=== PATIENT | male | born 2000 | race Caucasian/White ===

== ENCOUNTER 2022-08-20 20:34 | Emergency (ER) | payer BC ==
[2022-08-20 21:31] VITALS: RESP 18; TEMP 98
--- NOTE | 2022-08-20 23:09 | ED ---
Psych HPI - General Chief Complaint: Psychiatric Symptoms Stated Complaint: Mental Health Time Seen by Provider: 08/20/22 23:01 Source: patient, RN notes reviewed, old records reviewed Mode of arrival: ambulatory Limitations: no limitations - History of Present Illness Initial Comments: This is a 19-year-old male to the emergency department for evaluation of psychiatric illness. Patient presents today with depression suicidal thoughts. No recent history of drug or alcohol abuse. No prior inpatient hospitalizations or psychiatric evaluation and medication MD Complaint: feels depressed -: days(s) Associated Psychiatric Symptoms: depression, suicidal ideation History of same: Yes Quality: constant Improves With: none Worsens With: none Associated Symptoms: denies other symptoms Treatments Prior to Arrival: placed on mental health hold If Self Harm: admits thoughts of self harm - Related Data Allergies Allergy/AdvReac Type Severity Reaction Status Date / Time No Known Allergies Allergy Verified 08/20/22 21:28 Review of Systems ROS Statement: Those systems with pertinent positive or pertinent negative responses have been documented in the HPI. ROS Other: All systems not noted in ROS Statement are negative. Past Medical History Past Medical History: No Reported History History of Any Multi-Drug Resistant Organisms: None Reported Past Surgical History: No Surgical Hx Reported Past Psychological History: Anxiety, Depression Smoking Status: Never smoker Past Alcohol Use History: None Reported Past Drug Use History: None Reported General Exam Limitations: no limitations General appearance: alert, in no apparent distress Head exam: Present: atraumatic, normocephalic, normal inspection Eye exam: Present: normal appearance, PERRL, EOMI. Absent: scleral icterus, conjunctival injection, periorbital swelling ENT exam: Present: normal exam, mucous membranes moist Neck exam: Present: normal inspection. Absent: tenderness, meningismus, lymphadenopathy Respiratory exam: Present: normal lung sounds bilaterally. Absent: respiratory distress, wheezes, rales, rhonchi, stridor Cardiovascular Exam: Present: regular rate, normal rhythm, normal heart sounds. Absent: systolic murmur, diastolic murmur, rubs, gallop, clicks GI/Abdominal exam: Present: soft, normal bowel sounds. Absent: distended, tenderness, guarding, rebound, rigid Extremities exam: Present: normal inspection, full ROM, normal capillary refill. Absent: tenderness, pedal edema, joint swelling, calf tenderness Back exam: Present: normal inspection Neurological exam: Present: alert, oriented X3, CN II-XII intact Psychiatric exam: Present: normal affect, normal mood Skin exam: Present: warm, dry, intact, normal color. Absent: rash Course Vital Signs 08/20/22 21:29 Temperature 98 F Pulse Rate 59 L Respiratory 18 Rate Blood Pressure 126/84 O2 Sat by Pulse 98 Oximetry - Reevaluation(s) Reevaluation #1: 08/21/22 03:10 Medical records reviewed Reevaluation #2: 08/21/22 03:10 Medically clear for psychiatric evaluation Medical Decision Making - Medical Decision Making 22 male seen and evaluated by psychiatry, patient is stable for discharge home and is safety plan prior to discharge Disposition Clinical Impression: Depression, Suicidal ideation Disposition: HOME SELF-CARE Condition: Fair Instructions (If sedation given, give patient instructions): Depression (ED) Is patient prescribed a controlled substance at d/c from ED?: No Referrals: None,Stated [Primary Care Provider] - 1-2 days
[2022-08-21 07:02] VITALS: BP 135/75; PULSE 56
== END 2022-08-21 07:54 | disposition home or self-care (01) ==
LOC: EC 20:34
DX: F32.A Depression, unspecified (principal); R45.851 Suicidal ideations
CPT/HCPCS: 82075; 99285

== ENCOUNTER 2022-09-06 16:31 | Inpatient (IN) | payer BC ==
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
[2022-09-06 19:00] LABS: HCT 39.5 % (39.0-53.0); HGB 14.3 gm/dL (13.0-17.5); MCH 32.1 pg (25.0-35.0); MCHC 36.3 g/dL (31.0-37.0); MCV 88.5 fL (80.0-100.0); Mean Platelet Volume 8.7; Platelet Count 182 k/uL (150-450); RBC 4.46 m/uL (4.30-5.90); RDW 12.4 % (11.5-15.5)
[2022-09-06 19:11] LABS: ALT 21 U/L (4-49); AST 24 U/L (17-59); African American GFR (CKD) >90 (>60 ml/min/1.73 sqM); Albumin 4.3 g/dL (3.5-5.0); Alkaline Phosphatase 92 U/L (38-126); Anion Gap 10 mmol/L; Blood Urea Nitrogen 16 mg/dL (9-20); Calcium 9.3 mg/dL (8.4-10.2); Carbon Dioxide 23 mmol/L (22-30); Chloride 105 mmol/L (98-107); Glucose 85 mg/dL (74-99); Non-African American GFR(CKD) >90 (>60 ml/min/1.73 sqM); Potassium 4.1 mmol/L (3.5-5.1); Sodium 138 mmol/L (137-145); Total Bilirubin 1.7 mg/dL (0.2-1.3); Total Protein 6.9 g/dL (6.3-8.2)
[2022-09-06 19:12] LABS: Appearance,Urine Clear (Clear); Bilirubin,Urine Negative (Negative); Blood,Urine Negative (Negative); Color,Urine Yellow; Glucose,Urine (UA) Negative (Negative); Ketones,Urine Negative (Negative); Leukocyte Esterase,Urine Negative (Negative); Nitrite,Urine Negative (Negative); PH, Urine 6.5 (5.0-8.0); Protein,Urine Negative (Negative); Specific Gravity,Urine 1.023 (1.001-1.035)
[2022-09-06 19:18] LABS: Cocaine Screen,Urine Not Detected (NotDetected); Opiate Screen,Urine Not Detected (NotDetected); Phencyclidine Screen,Urine Not Detected (NotDetected); Urn Cannabinoid Scrn Detected (NotDetected)
[2022-09-06 19:19] LABS: Amphetamine Screen,Urine Not Detected (NotDetected); Barbiturate Screen,Urine Not Detected (NotDetected); Benzodiazepines Screen,Urine Not Detected (NotDetected); Methadone Screen, Urine Not Detected (NotDetected); Oxycodone Screen, Urine Not Detected (NotDetected); Tricyclic Antidepressant,Urine Not Detected (NotDetected)
[2022-09-06] MEDS ORDERED: MAGNESIUM HYDROXIDE 2,400 MG/30 ML CUP PO PRN (22:07)
[2022-09-06] MEDS ORDERED: OLANZapine 5 MG TAB PO PRN (22:07)
[2022-09-06] MEDS ORDERED: MAG HYDROX/AL HYDROX/SIMETH 30 ML CUP PO PRN (22:07)
[2022-09-07 10:38] LABS: Chol/HDL Ratio 3.11 Ratio; LDL Cholesterol,Calculated 52.2 mg/dL (0.0-131.0)
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
[2022-09-07] MEDS: NALTREXONE HCL 50 MG TAB PO SCH (11:57)
[2022-09-07] MEDS: ARIPiprazole 10 MG TAB PO SCH (11:57)
[2022-09-07] MEDS: NICOTINE 14MG/24HR PATCH TRANSDERM SCH (11:57)
[2022-09-07] MEDS: hydrOXYzine pamoate 25 MG CAP PO PRN (20:58)
[2022-09-08] MEDS: NICOTINE 14MG/24HR PATCH TRANSDERM SCH (08:56)
[2022-09-08] MEDS: NALTREXONE HCL 50 MG TAB PO SCH (08:56)
[2022-09-08] MEDS: ARIPiprazole 10 MG TAB PO SCH (08:56)
--- NOTE | 2022-09-08 11:24 | P.PN ---
Progress Note - Text Progress Note Date: 09/08/22 Interval History: Patient was seen resting in bed and was directable and agreeable to speak with assembly instructions writer in his room., The patient is not reporting any suicidal or homicidal ideation, intention, and/or plan. He is not reporting any auditory or visual hallucinations. The patient does admit to elevated paranoia and states that he often feels like people at work are constantly speaking about him. He reports that they say mean stuff to him stating that he is "sarabia." He reports no intention to harm them or hurt anyone. He has been adherent with his medication and reports only mild sedation as a side effect. He is agreeable to transitioning to a long-acting injectable prior to discharge. He denies any medical issues or concerns. The patient does admit to heavy marijuana use. He does acknowledge the need to decrease his marijuana use. Mental Status Exam: General Appearance: Patient appears to be stated age is alert, directable, and cooperative. Behavior: Patient is calmly seated without any agitated behavior. Speech: Patient's speech is fluent and nonpressured. Mood/Affect: Mood is improving mildly, affect is congruent and blunted. Suicidality/Homicidality: Patient reports no suicidal or homicidal ideation, intention, and/or plan. Perceptions: Patient denies any visual hallucinations however admits to auditory hallucinations. Though content/process: The patient continues to endorse elevated paranoia. Memory and concentration: AOX3, grossly intact for the purposes of this session Judgment and insight: Improving mildly Vital Signs Temp 98.2 F 09/08/22 06:42 Pulse 57 L 09/08/22 06:42 Resp 14 09/08/22 06:42 BP 123/59 09/08/22 06:42 Pulse Ox 100 09/06/22 23:45 FiO2 Assessment Schizophrenia - likely experiencing prodromal symptoms Alcohol use disorder, abuse Cannabis use disorder Nicotine dependence Plan: -Patient continues to meet criteria for inpatient psychiatric admission for symptom stabilization and safety. Patient has signed adult voluntary form and medication consent and was placed in patient's chart. -Medications: Increase Abilify to 20 mg by mouth daily for psychosis with plans to transition him to Abilify maintena prior to discharge. Continue naltrexone 50 mg by mouth daily for alcohol cessation -When necessary Zyprexa and Vistaril for agitation/aggression. -NRT - nicotine patch -SW on board for discharge planning. Encouraged the patient to participate in milieu.
[2022-09-08 13:21] VITALS: BMI 22.1
--- NOTE | 2022-09-08 17:41 | P.HPMEDMHU ---
History of Present Illness H&P Date: 09/08/22 Chief Complaint: SI Patient is a 22-year-old male with a past medical history of vaping who [facility]. Patient states that earlier this year he had a tick bite and completed antibiotic course. He states that currently he is not on any medications prior to coming in. Patient denies any shortness of breath, abdominal pain nausea vomiting. Review of Systems 10 ROS reviewed and are negative except as noted in HPI Past Medical History Past Medical History: No Reported History History of Any Multi-Drug Resistant Organisms: None Reported Past Surgical History: No Surgical Hx Reported Past Anesthesia/Blood Transfusion Reactions: No Reported Reaction Past Psychological History: Anxiety, Depression, Schizophrenia Additional Psychological History / Comment(s): pt reports having been admitted to the psych unit at [facility] but unsure of the date Smoking Status: Former smoker, Vaper Past Alcohol Use History: Heavy Additional Past Alcohol Use History / Comment(s): pt reports drinking beer "at least every three days or so" Past Drug Use History: Marijuana Additional Drug Use History / Comment(s): pt smokes weed "occasionally" but states "I'm done with that stuff now, it just makes it worse" Medications and Allergies Home Medications Medication Instructions Recorded Confirmed Type No Known Home Medications 09/06/22 09/06/22 History Allergies Allergy/AdvReac Type Severity Reaction Status Date / Time No Known Allergies Allergy Verified 09/06/22 20:21 Physical Exam Osteopathic Statement: *. No significant issues noted on an osteopathic structural exam other than those noted in the History and Physical/Consult. Vitals: Vital Signs Temp Pulse Resp BP 09/08/22 06:42 98.2 F 57 L 14 123/59 Intake and Output 09/08/22 09/08/22 09/08/22 06:59 14:59 22:59 Other: Weight 80.3 kg General: [Alert and oriented, well nourished, no acute distress]. Eye: [PERRL, EOMI, normal conjunctiva]. HENT: [Normocephalic, clear tympanic membranes, normal hearing, moist oral mucosa, no scleral icterus, no sinus tenderness]. Neck: [Supple, non-tender, no carotid bruits, no JVD, no lymphadenopathy]. Lungs: [Clear to auscultation and percussion, non-labored respiration]. Heart: [Normal rate, regular rhythm, no murmur, gallop or edema]. Abdomen: [Soft, non-tender, non-distended, normal bowel sounds, no masses]. Musculoskeletal: [Normal range of motion and strength, no tenderness or swelling]. Skin: [Skin is warm, dry and pink, no rashes or lesions]. Neurologic: [Awake, alert, and oriented X3, CN II-XII intact]. Psychiatric: [Cooperative, appropriate mood and affect]. Cranial Nerve Examination - Cranial Nerves Cranial Nerve I- Olfactory: Intact Cranial Nerve II- Optic: Intact Cranial Nerve III- Oculomotor: Intact Cranial Nerve IV- Trochlear: Intact Cranial Nerve V- Trigeminal: Intact Cranial Nerve - Abducens: Intact Cranial Nerve VII- Facial: Intact Cranial Nerve VIII- Auditory: Intact Cranial Nerve IX- Glossopharyngeal: Intact Cranial Nerve X- Vagus: Intact Cranial Nerve XI- Accessory: Intact Cranial Nerve XII- Hypoglossal: Intact Results CBC & Chem 7: 09/06/22 18:22 09/06/22 18:22 Thrombosis Risk Factor Assmnt - Choose All That Apply Any of the Below Risk Factors Present?: No Other Risk Factors: No Other congenital or acquired thrombophilia - If yes, enter type in comment: No Thrombosis Risk Factor Assessment Level: Very Low Risk Assessment and Plan Assessment: Vaping Patient counseled that he should stop vaping Marijuana use Patient counseled on cessation Mildly elevated bilirubin Patient is asymptomatic No further workup Suicide idealization and depression As per previous psychiatric management
[2022-09-08] MEDS: ACETAMINOPHEN TAB 325 MG TAB PO PRN (21:15)
[2022-09-09] MEDS: hydrOXYzine pamoate 25 MG CAP PO PRN (08:49)
[2022-09-09] MEDS: NALTREXONE HCL 50 MG TAB PO SCH (08:49)
[2022-09-09] MEDS: NICOTINE 14MG/24HR PATCH TRANSDERM SCH (08:49)
[2022-09-09] MEDS ORDERED: ARIPiprazole IM 400 MG VIAL (NO COST) PHARMACY STOCK IM ONE (10:00)
--- NOTE | 2022-09-09 11:27 | P.PN ---
Progress Note - Text Progress Note Date: 09/09/22 Interval History: Patient was seen resting in bed and was directable and agreeable to speak with newspaper writer in his room. The patient reports that he is feeling significantly better today. Reports that he is no longer expressing any kind of racing thoughts. He denies any auditory or visual hallucinations. He reports no paranoia or other delusions. He has been a hearing with his medication only reports mild sedation as a side effect. He denies any suicidal or homicidal ideation, intention, and/or plan. The patient does express future and goal orientation. He states that he is considering going to inpatient substance-abuse rehabilitation as he is currently homeless and this is what his mother suggesting. However, the patient does express a desire to return home and not to continue inpatient treatment. Mental Status Exam: General Appearance: Patient appears to be stated age is alert, directable, and cooperative. Behavior: Patient is calmly seated without any agitated behavior. Speech: Patient's speech is fluent and nonpressured. Mood/Affect: Mood is improving mildly, affect has increased range today. Euthymic. Suicidality/Homicidality: Patient reports no suicidal or homicidal ideation, intention, and/or plan. Perceptions: Patient denies any auditory or visual hallucinations Though content/process: Linear and logical in short conversation. Memory and concentration: AOX3, grossly intact for the purposes of this session Judgment and insight: Improving mildly Vital Signs Temp 98.3 F 09/09/22 06:00 Pulse 65 09/09/22 06:00 Resp 18 09/09/22 06:00 BP 138/79 09/09/22 06:00 Pulse Ox 98 09/09/22 06:00 FiO2 Intake & Output 09/08/22 09/09/22 09/09/22 18:59 06:59 18:59 Weight 80.3 kg Laboratory Results WBC 9.0 k/uL (3.8-10.6) 09/06/22 18:22 RBC 4.46 m/uL (4.30-5.90) 09/06/22 18:22 Hgb 14.3 gm/dL (13.0-17.5) 09/06/22 18:22 Hct 39.5 % (39.0-53.0) 09/06/22 18:22 MCV 88.5 fL (80.0-100.0) 09/06/22 18:22 MCH 32.1 pg (25.0-35.0) 09/06/22 18: MCHC 36.3 g/dL (31.0-37.0) 09/06/22 18:22 RDW 12.4 % (11.5-15.5) 09/06/22 18:22 Plt Count 182 k/uL (150-450) 09/06/22 18:22 MPV 8.7 09/06/22 18:22 Sodium 138 mmol/L (137-145) 09/06/22 18:22 Potassium 4.1 mmol/L (3.5-5.1) 09/06/22 18: Chloride 105 mmol/L (98-107) 09/06/22 18: Carbon Dioxide 23 mmol/L (22-30) 09/06/22 18: Anion Gap 10 mmol/L 09/06/22 18:22 BUN 16 mg/dL (9-20) 09/06/22 18: Creatinine 0.77 mg/dL (0.66-1.25) 09/06/22 18:22 Est GFR (CKD-EPI)AfAm >90 (>60 ml/min/1.73 sqM) 09/06/22 18:22 Est GFR (CKD-EPI)NonAf >90 (>60 ml/min/1.73 sqM) 09/06/22 18:22 Glucose 85 mg/dL (74-99) 09/06/22 18:[address] Glu mg/dL 105 mg/dL 09/06/22 18: Hemoglobin A1c 5.3 % (<=6.0) 09/06/22 18: Calcium 9.3 mg/dL (8.4-10.2) 09/06/22 18: Total Bilirubin 1.7 mg/dL (0.2-1.3) H 09/06/22 18:22 AST 24 U/L (17-59) 09/06/22 18:22 ALT 21 U/L (4-49) 09/06/22 18:22 Alkaline Phosphatase 92 U/L (38-126) 09/06/22 18:22 Total Protein 6.9 g/dL (6.3-8.2) 09/06/22 18:22 Albumin 4.3 g/dL (3.5-5.0) 09/06/22 18:22 Triglycerides 170.00 mg/dL (0.00-149.00) H 09/06/22 18:22 Cholesterol 127.00 mg/dL (0.00-200.00) 09/06/22 18:22 LDL Cholesterol, Calc 52.2 mg/dL (0.0-131.0) 09/06/22 18: VLDL Cholesterol, Calc 34.00 mg/dL (5.00-40.00) 09/06/22 18:22 HDL Cholesterol 40.80 mg/dL (40.00-60.00) 09/06/22 18: Cholesterol/HDL Ratio 3.11 Ratio 09/06/22 18: TSH 0.764 mIU/L (0.465-4.680) 09/06/22 18:22 Urine Color Yellow 09/06/22 18:22 Urine Appearance Clear (Clear) 09/06/22 18:22 Urine pH 6.5 (5.0-8.0) 09/06/22 18:22 Ur Specific [place] 1.023 (1.001-1.035) 09/06/22 18:22 Urine Protein Negative (Negative) 09/06/22 18:22 Urine Glucose (UA) Negative (Negative) 09/06/22 18:22 Urine Ketones Negative (Negative) 09/06/22 18:22 Urine Blood Negative (Negative) 09/06/22 18:22 Urine Nitrite Negative (Negative) 09/06/22 18:22 Urine Bilirubin Negative (Negative) 09/06/22 18:22 Urine Urobilinogen 2.0 mg/dL (<2.0) 09/06/22 18:22 Ur Leukocyte Esterase Negative (Negative) 09/06/22 18:22 Urine Opiates Screen Not Detected (NotDetected) 09/06/22 18:22 Ur Oxycodone Screen Not Detected (NotDetected) 09/06/22 18:22 Urine Methadone Screen Not Detected (NotDetected) 09/06/22 18:22 Ur Propoxyphene Screen Not Detected (NotDetected) 09/06/22 18:22 Ur Barbiturates Screen Not Detected (NotDetected) 09/06/22 18:22 U Tricyclic Antidepress Not Detected (NotDetected) 09/06/22 18:22 Ur Phencyclidine Scrn Not Detected (NotDetected) 09/06/22 18:22 Ur Amphetamines Screen Not Detected (NotDetected) 09/06/22 18:22 U Methamphetamines Scrn Not Detected (NotDetected) 09/06/22 18:22 U Benzodiazepines Scrn Not Detected (NotDetected) 09/06/22 18:22 Urine Cocaine Screen Not Detected (NotDetected) 09/06/22 18:22 U Marijuana (THC) Screen Detected (NotDetected) H 09/06/22 18:22 Coronavirus (PCR) Not Detected (Not Detectd) 09/06/22 18:22 Assessment Schizophrenia - likely experiencing prodromal symptoms Alcohol use disorder, abuse Cannabis use disorder Nicotine dependence Plan: -Patient continues to meet criteria for inpatient psychiatric admission for symptom stabilization and safety. Patient has signed adult voluntary form and medication consent and was placed in patient's chart. -Medications: Continue Abilify 20 mg by mouth daily and administer Abilify maintena 400 mg IM today. Continue naltrexone 50 mg by mouth daily for alcohol cessation -When necessary Zyprexa and Vistaril for agitation/aggression. -NRT - nicotine patch -SW on board for discharge planning. Encouraged the patient to participate in milieu.
[2022-09-10 03:23] VITALS: BP 130/66; PULSE 99; RESP 16; TEMP 97.9
[2022-09-10] MEDS: NALTREXONE HCL 50 MG TAB PO SCH (08:31)
[2022-09-10] MEDS: ACETAMINOPHEN TAB 325 MG TAB PO PRN (08:32)
[2022-09-10] MEDS: NICOTINE 14MG/24HR PATCH TRANSDERM SCH (08:33)
--- NOTE | 2022-09-10 11:25 | P.DS ---
Providers Date of admission: 09/06/22 22:03 Expected date of discharge: 09/10/22 Attending physician: Lorne Howell MD Consults: 09/08/22 01:15 Consult Physician Routine Consulting Provider: Jaz Lennon Consult Reason/Comments: History and Physical for new admission Do you want consulting provider notified?: Yes Primary care physician: Stated None - Discharge Diagnosis(es) (1) Cannabis-induced psychotic disorder Current Visit: Yes Status: Acute Priority: High (2) Cannabis use disorder Current Visit: Yes Status: Chronic Priority: High (3) Alcohol use disorder Current Visit: Yes Status: Chronic Priority: High (4) Nicotine dependence Current Visit: Yes Status: Chronic Priority: Medium Hospital Course: Admission HPI: Initial psychiatric evaluation was completed by Dr. Rao on 09/07/2022 who wrote: Patient is a single, employed, 22-year-old male who is presenting with substance use and suicidal ideation Patient was brought into the ED with his mother seeking treatment for a prior self-reported diagnosis of schizophrenia and presents with current suicidal ideation with plan to go onto a road to kill himself. While in the ED, his mother stated that patient suffers from hallucinations but denies it to others. Patient was admitted voluntarily onto the psychiatric unit. Patient is rather guarded throughout the interview although he opens up at times. He states that for the past year, he has been concerned about "people wanting to hurt me". He says that the paranoia was increasing also due to c annabis use. He states that last year, this paranoia was so overwhelming that he drove his truck into the [place]. He states that he attempted to hang himself in the [place] but then decided to get help instead. He was subsequently hospitalized at [facility] but states that he has not been compliant with medications that were prescribed there, which he recalls being Abilify, Vistaril, and trazodone. He reports noncompliance with these medications for the past 6 months. Patient describes a type of anxiety, unease that has begun in the past year. He cannot seem to express what he is worried about but states that he is always worried that people are going to hurt him. He states he is afraid he might become aggressive because of this perception. Serge also states that he has been drinking every other week excessively and states that he becomes agitated while drunk. As a result, he would like to maintain sobriety. He also reports that he had been sober from cannabis use for the past few months but had a relapse 2 days ago. He endorses paranoia even while sober of substances. He also expresses that his mood has been somewhat low and reports having low energy. He says that he does not feel like going on like this. He endorses passive suicidal ideation. He reports sleeping well and having fair appetite. On risk assessment, patient denies active suicidal ideation, intent, plan and denies homicidal ideation. He overly denies auditory and visual hallucinations. He denies access to firearms. Hospital course: Upon admission to the unit patient was initially presenting with psychomotor slowing, and suicidal ideation. Patient was however directable and agreeable to commence treatment. He signed himself voluntarily onto the psychiatric unit. Patient got along well with other patients on the unit and followed unit protocol. Patient was compliant with the medications and denied any side effects throughout hospital course. Patient was started on a regimen of Abilify for psychosis and naltrexone for alcohol cravings. Patient spoke of his stressors and engaged in therapy both group and individual. Patient was also seen by medical team for history and physical exam. Over the course of the Hospital physician, the patient's Abilify was gradually titrated. The patient displayed a significant improvement with this medication regimen and became more linear and logical and conversation. His range of affect has also increased. He did not endorse any auditory or visual hallucinations and had a significant improvement in his target symptoms of psychosis and mood. The patient also developed that her insight and judgment and was able to acknowledge that marijuana has been a contributor to his poor mental health. Initially, there was a plan for the patient to go to inpatient substance-abuse rehabilitation as this was recommended by the patient's mother. The patient has no home at this time to return to. However, the patient's insurance does not cover inpatient substance rehabilitation at [facility]. The patient expressed a strong desire for his discharge as he was a voluntary admission and presented with no significant criteria for continued inpatient psychiatric admission. On the day of discharge, the patient is not reporting any suicidal or homicidal ideation, intention, and/or plan. He reports no access to firearms or other weapons. He reports no auditory or visual hallucinations. He denies any paranoia or other delusions. He has been adherent with his medication and is not reporting any significant side effects. The patient's mother expresses concern for the patient's discharge stating that he is unable to return to her home and has no place to go to. Patient maintains that he is able to afford a motel stay at this time and he has friends he may contact. The acute cause of the patient's admission has been treated. He has been stabilized with medications and will be set up with aftercare appointments. The patient was counseled at length and he points medication adherence reported outpatient follow-up. He was counseled great length on abstaining from all substances, especially marijuana. As the patient no longer met criteria for continued inpatient psychiatric hospitalization he was subsequently discharged so as to not violate his rights to autonomy and freedom. Mental status exam: General Appearance: Patient appears to be stated age is alert, pleasant, and cooperative. Patient is in no acute distress and has fair hygiene and grooming Behavior: Patient is calmly seated without any agitated behavior. Speech: Patient's speech is fluent and nonpressured. Mood/Affect: Patient reports their mood is "much better", affect is congruent and euthymic to bright. Suicidality/Homicidality: Patient denies having any suicidal or homicidal ideation intent or plan. Perceptions: Patient denies any auditory or visual hallucinations. Though content/process: There is no evidence of any delusional thought content and thought process is linear and goal-directed. Patient is future oriented Memory and concentration: AOX3, grossly intact for the purposes of this session. Can spell "WORLD" backwards correctly. Judgment and insight: Improved with guarded prognosis Impression: Cannabis induced psychotic disorder Alcohol use disorder Cannabis use disorder Nicotine dependence Plan: -Continue with discharge today as patient has improved and stabilized psychiatrically and is not currently an imminent threat to himself and/or others. Patient will remain at chronically elevated risk due to his lack of stable housing and his history of substance abuse. -Continue medications: Abilify 20 mg by mouth at bedtime for psychosis/mood ReVia 50 mg by mouth daily for alcohol cessation -Patient was counseled on the need for medication compliance and appropriate follow-up at mental health and also primary care for medical issues. Patient verbalized understanding and agreed. -Social work to arrange for and conduct family meeting to ensure safety upon discharge and answer any questions/concerns. Social work also to arrange for patients follow up appointments with [facility] for psychiatric care along with follow up with primary care provider. -Patient counseled on abstaining from recreational drugs and marijuana and alcohol. Was informed/educated on the adverse effects on their physical and m ental health. Patient verbally agreed and understood. The patient was offered inpatient substance abuse treatment however his insurance does not cover it. Furthermore, the patient would only go to inpatient substance-abuse in order to appease his mother. -Patient was instructed to return to the hospital or seek immediate medical care if their psychiatric or medical symptoms do worsen or reoccur. -Psychoeducation and supportive therapy provided to patient. Risks and benefits of pharmacological treatment versus the risks and benefits of nontreatment weighed and discussed. Informed consent discussion held. Common side effects of psychotropics discussed such as, but not limited to headache, GI disturbance, sexual dysfunction, movement disorders, sedation, and orthostatic hypotension. Life threatening and blackbox warnings of prescribed medications also discussed. Potential risks of operating a vehicle or heavy machinery discussed with patient at length. Advised on importance of compliance and a reliable and responsible manner. Patient advised to review FDA consumer labeling of all medications prior to taking. Patient verbalized understanding of potential risks, and agrees with current treatment plan. Patient advised to medically contact physician/emergency personnel if any acute changes in condition occur. Vital Signs Temp 97.9 F 09/10/22 03:22 Pulse 99 09/10/22 03:22 Resp 16 09/10/22 03:22 BP 130/66 09/10/22 03:22 Pulse Ox 99 09/10/22 03:22 FiO2 Laboratory Results WBC 9.0 k/uL (3.8-10.6) 09/06/22 18: RBC 4.46 m/uL (4.30-5.90) 09/06/22 18:22 Hgb 14.3 gm/dL (13.0-17.5) 09/06/22 18: Hct 39.5 % (39.0-53.0) 09/06/22 18: MCV 88.5 fL (80.0-100.0) 09/06/22 18:22 MCH 32.1 pg (25.0-35.0) 09/06/22 18: MCHC 36.3 g/dL (31.0-37.0) 09/06/22 18:22 RDW 12.4 % (11.5-15.5) 09/06/22 18:22 Plt Count 182 k/uL (150-450) 09/06/22 18:22 MPV 8.7 09/06/22 18:22 Sodium 138 mmol/L (137-145) 09/06/22 18:22 Potassium 4.1 mmol/L (3.5-5.1) 09/06/22 18:22 Chloride 105 mmol/L (98-107) 09/06/22 18:22 Carbon Dioxide 23 mmol/L (22-30) 09/06/22 18:22 Anion Gap 10 mmol/L 09/06/22 18:22 BUN 16 mg/dL (9-20) 09/06/22 18:22 Creatinine 0.77 mg/dL (0.66-1.25) 09/06/22 18:22 Est GFR (CKD-EPI)AfAm >90 (>60 ml/min/1.73 sqM) 09/06/22 18:22 Est GFR (CKD-EPI)NonAf >90 (>60 ml/min/1.73 sqM) 09/06/22 18:22 Glucose 85 mg/dL (74-99) 09/06/22 18:[address] Glu mg/dL 105 mg/dL 09/06/22 18:22 Hemoglobin A1c 5.3 % (<=6.0) 09/06/22 18:22 Calcium 9.3 mg/dL (8.4-10.2) 09/06/22 18:22 Total Bilirubin 1.7 mg/dL (0.2-1.3) H 09/06/22 18:22 AST 24 U/L (17-59) 09/06/22 18:22 ALT 21 U/L (4-49) 09/06/22 18:22 Alkaline Phosphatase 92 U/L (38-126) 09/06/22 18:22 Total Protein 6.9 g/dL (6.3-8.2) 09/06/22 18:22 Albumin 4.3 g/dL (3.5-5.0) 09/06/22 18:22 Triglycerides 170.00 mg/dL (0.00-149.00) H 09/06/22 18:22 Cholesterol 127.00 mg/dL (0.00-200.00) 09/06/22 18:22 LDL Cholesterol, Calc 52.2 mg/dL (0.0-131.0) 09/06/22 18:22 VLDL Cholesterol, Calc 34.00 mg/dL (5.00-40.00) 09/06/22 18: HDL Cholesterol 40.80 mg/dL (40.00-60.00) 09/06/22 18: Cholesterol/HDL Ratio 3.11 Ratio 09/06/22 18: TSH 0.764 mIU/L (0.465-4.680) 09/06/22 18:22 Urine Color Yellow 09/06/22 18: Urine Appearance Clear (Clear) 09/06/22 18: Urine pH 6.5 (5.0-8.0) 09/06/22 18:22 Ur Specific [place] 1.023 (1.001-1.035) 09/06/22 18:22 Urine Protein Negative (Negative) 09/06/22 18:22 Urine Glucose (UA) Negative (Negative) 09/06/22 18:22 Urine Ketones Negative (Negative) 09/06/22 18:22 Urine Blood Negative (Negative) 09/06/22 18:22 Urine Nitrite Negative (Negative) 09/06/22 18:22 Urine Bilirubin Negative (Negative) 09/06/22 18:22 Urine Urobilinogen 2.0 mg/dL (<2.0) 09/06/22 18:22 Ur Leukocyte Esterase Negative (Negative) 09/06/22 18:22 Urine Opiates Screen Not Detected (NotDetected) 09/06/22 18:22 Ur Oxycodone Screen Not Detected (NotDetected) 09/06/22 18:22 Urine Methadone Screen Not Detected (NotDetected) 09/06/22 18:22 Ur Propoxyphene Screen Not Detected (NotDetected) 09/06/22 18:22 Ur Barbiturates Screen Not Detected (NotDetected) 09/06/22 18:22 U Tricyclic Antidepress Not Detected (NotDetected) 09/06/22 18:22 Ur Phencyclidine Scrn Not Detected (NotDetected) 09/06/22 18:22 Ur Amphetamines Screen Not Detected (NotDetected) 09/06/22 18:22 U Methamphetamines Scrn Not Detected (NotDetected) 09/06/22 18:22 U Benzodiazepines Scrn Not Detected (NotDetected) 09/06/22 18:22 Urine Cocaine Screen Not Detected (NotDetected) 09/06/22 18:22 U Marijuana (THC) Screen Detected (NotDetected) H 09/06/22 18:22 Coronavirus (PCR) Not Detected (Not Detectd) 09/06/22 18:22 Allergies Allergy/AdvReac Type Severity Reaction Status Date / Time No Known Allergies Allergy Verified 09/06/22 20:21 Patient Condition at Discharge: Stable Plan - Discharge Summary Discharge Rx Participant: No New Discharge Prescriptions: New ARIPiprazole [Abilify] 20 mg PO HS 30 Days #30 tab Naltrexone HCl [Revia] 50 mg PO DAILY 30 Days #30 tab Discharge Medication List ARIPiprazole [Abilify] 20 mg PO HS 30 Days #30 tab 09/10/22 [Rx] Naltrexone HCl [Revia] 50 mg PO DAILY 30 Days #30 tab 09/10/22 [Rx] Follow up Appointment(s)/Referral(s): [facility] [NON-STAFF] - 1 Week Patient Instructions/Handouts: Depression (DC), Abuse of Alcohol (DC), Cannabis Abuse (DC) Activity/Diet/Wound Care/Special Instructions: Avoid the use of street drugs and alcohol. Take all medications as prescribed. When you are in need of refills on your medications, please contact your medical provider and/or outpatient psychiatrist to have this done. Please go to scheduled outpatient appointments for aftercare treatment. If symptoms return or become worse, call the crisis line at and/or go to the nearest emergency room for evaluation. Discharge/Stand Alone Forms: AA Meetings [place] Discharge Disposition: HOME SELF-CARE
[2022-09-10] MEDS ORDERED: NICOTINE GUM (POLACRILEX) 2 MG GUM BUCCAL PRN (15:20)
== END 2022-09-10 17:30 | disposition home or self-care (01) | DRG 885 ==
LOC: EC 16:31 → 3MHU 22:03
PROVIDERS: ADMIT Psychiatry & Neurology Psychiatry; ATTEND Psychiatry & Neurology Psychiatry
DX: F20.9 Schizophrenia, unspecified (principal); R45.851 Suicidal ideations; F12.159 Cannabis abuse with psychotic disorder, unspecified; F17.290 Nicotine dependence, other tobacco product, uncomplicated; F32.A Depression, unspecified; F41.9 Anxiety disorder, unspecified; Z76.5 Malingerer [conscious simulation]; Z91.148 Patient's other noncompliance with medication regimen for other reason; Z79.899 Other long term (current) drug therapy; Z71.51 Drug abuse counseling and surveillance of drug abuser
CPT/HCPCS: 36415; 80053; 80061; 80306; 81003; 82075; 83036; 84443; 85027; 87635; 99285